=== PATIENT | male | born 1960 | race Caucasian/White ===

== ENCOUNTER 2017-05-04 09:19 | Emergency (ER) | payer MEDICAID ==
[~2017-05-04] VITALS: Ht 185.4 cm; Wt 124.3 kg
[2017-05-04 09:29] VITALS: BP_SYST 156
[2017-05-04 11:57] VITALS: BP_SYST 141
== END 2017-05-04 11:57 | disposition home or self-care (01) ==
LOC: SED 09:19
DX: S61.216D Laceration without foreign body of right little finger without damage to nail, subsequent encounter (principal); Z88.1 Allergy status to other antibiotic agents; X58.XXXD Exposure to other specified factors, subsequent encounter
CPT/HCPCS: 99281

== ENCOUNTER 2017-05-18 08:32 | Emergency (ER) | payer MEDICAID ==
[~2017-05-18] VITALS: Ht 185.4 cm; Wt 124.3 kg
[2017-05-18 08:38] VITALS: BP_SYST 193
--- NOTE | 2017-05-18 08:42 | NUR ---
Pt placed to ER bed 07. Report given to RAISSA Kelley.
--- NOTE | 2017-05-18 08:48 | NUR ---
ER at bedside examining patient.
--- NOTE | 2017-05-18 08:50 | NUR ---
Pt came in for suture removal to right pinkie finger. No other injuries/complaints per pt or noted.
--- NOTE | 2017-05-18 08:55 | NUR ---
Dr Becerra removed 3 stitches from right pinkie finger, pt tolerated it well. Cleaned with ns, pat dried, steri strips applied with bacitracin and kerlix dressing.
[2017-05-18] MEDS ORDERED: BACITRACIN 1 GM OINT TP ONE (09:00)
[2017-05-18 09:15] VITALS: BP_SYST 145
--- NOTE | 2017-05-18 09:15 | NUR ---
Patient given written and verbal discharge instructions and verbalizes understanding. ER MD discussed with patient the results and treatment provided. Patient in stable condition. ID arm band removed. No Rx given. Patient educated on pain management and to follow up with PMD. Pain Scale 2. Opportunity for questions provided and answered.
== END 2017-05-18 09:15 | disposition home or self-care (01) ==
LOC: SED 08:32
DX: S61.216D Laceration without foreign body of right little finger without damage to nail, subsequent encounter (principal); Z88.1 Allergy status to other antibiotic agents; Z96.649 Presence of unspecified artificial hip joint; X58.XXXD Exposure to other specified factors, subsequent encounter
CPT/HCPCS: 99283

== ENCOUNTER 2018-04-29 06:47 | Emergency (ER) | payer MEDICAID ==
[~2018-04-29] VITALS: Ht 185.4 cm; Wt 117.9 kg
[2018-04-29 06:52] VITALS: BP_SYST 158
[2018-04-29] MEDS ORDERED: KETOROLAC TROMETHAMINE 60 MG/2 ML VIAL IM ONE (07:15)
[2018-04-29 08:15] VITALS: BP_SYST 135
== END 2018-04-29 08:15 | disposition home or self-care (01) ==
LOC: SED 06:47
DX: S70.12XA Contusion of left thigh, initial encounter (principal); Z88.1 Allergy status to other antibiotic agents; X50.9XXA Other and unspecified overexertion or strenuous movements or postures, initial encounter; Y93.89 Activity, other specified; Y92.89 Other specified places as the place of occurrence of the external cause; Y99.8 Other external cause status
CPT/HCPCS: 73502; 73552; 96372; 99283; J1885